=== PATIENT | male | born 1965 | race Caucasian/White ===

== ENCOUNTER → 2018-01-30 | Outpatient (CLI) | payer OTHER ==
[~2018-01-30] MED LIST: REGADENOSON 0.4 MG/5 ML SYRINGE IV ONE
--- NOTE | 2018-01-30 14:15 | EST ---
EXERCISE STRESS DATE OF SERVICE: 01/30/2018 AGE: 52 SEX: M HT: 5'8" WT: 218 PROTOCOL: Lexiscan Cardiolite Stress Test HEART RATE REST: 69 BLOOD PRESSURE REST: 125/95 MAXIMUM HEART RATE ACHIEVED: 115 MAXIMUM BLOOD PRESSURE: 168/74 85% MPHR: 143 100% MPHR: 168 INDICATIONS: Chest pain, shortness of breath. CLINICAL INFORMATION: STRESS DATA: Pretesting physical examination showed heart rate of 69, pressure is 125/95 mmHg. Baseline EKG showed sinus mechanism; 0.4 mg of Lexiscan was given to the patient over 15 seconds per protocol. Max heart rate was 115 beats per minute and maximum pressure was 168/74 mmHg; 0.4 mg of Lexiscan was given. Clinically, the patient did not have any symptoms and the EKG did not show any significant ST or T-wave abnormalities concerning for ischemia. CONCLUSION: 1. Nondiagnostic electrocardiogram stress testing in response to Lexiscan. 2. Please follow up on the Cardiolite portion on separate report from the Radiology Department. MMODL / IJN: [id number] /
--- NOTE | 2018-01-30 16:39 | NM ---
EXAMINATION TYPE: NM stress lexiscan cardiolite DATE OF EXAM: 01/30/2018 COMPARISON: NONE HISTORY: Chest pain shortness of breath TECHNIQUE: After the intravenous administration of 10.29 mCi Tc 99m Sestamibi - Cardiolite resting S PECT images acquired 45 minutes post injection. The patient received 0.4mg Lexiscan, 25.8 mCi Tc 99m Sestamibi - Stress images obtained [address] injection FINDINGS: No fixed or reversible perfusion defects are evident. Gated wall motion appears normal. The ejection fraction of 50% is borderline but normal. On Polar maps there is a defect along the mid to distal anterior wall stress images which is also pre sent on the resting images. Suspicious defect on the SPECT imaging is not evident correlate. This may be artifact. Mild prior infarct is considered less likely. IMPRESSION: 1. No stress-induced ischemic change. 2. Very mild mild infarct along the distal anterior wall is not excluded. Correlate for EKG changes. Artifact is within the differential.
== END | disposition home or self-care (01) ==
LOC: RADNMMAIN 08:39
PROVIDERS: ATTEND Internal Medicine
DX: R06.02 Shortness of breath (principal); R07.9 Chest pain, unspecified
CPT/HCPCS: 93017; 78452; A9500; J2785

== ENCOUNTER → 2022-04-03 | Outpatient (CLI) | payer OTHER ==
[2022-04-03 22:13] LABS: ALT 35 U/L (10-49); AST 22 U/L (14-35); African American GFR (CKD) 91.5 (60.0-200.0); Albumin 4.4 g/dL (3.8-4.9); Albumin/Globulin Ratio 2.06 (1.60-3.17); Alkaline Phosphatase 73 U/L (41-126); Bilirubin, Conjugated <0.20 mg/dL (0.20-0.40); Blood Urea Nitrogen 18.1 mg/dL (9.0-27.0); Carbon Dioxide 21.4 mmol/L (20.0-27.5); Chloride 105 mmol/L (96-109); Globulin 2.1 g/dL (1.6-3.3); Glucose 97 mg/dL (70-110); Potassium 4.1 mmol/L (3.5-5.5); Sodium 142 mmol/L (135-145); Total Protein 6.6 g/dL (6.2-8.2)
[2022-04-03 22:20] LABS: Chol/HDL Ratio 3.88 Ratio; LDL Cholesterol,Calculated 124.9 mg/dL (0.0-131.0)
== END | disposition home or self-care (01) ==
LOC: LABWHC1 13:28
PROVIDERS: ATTEND Internal Medicine
DX: Z00.00 Encounter for general adult medical examination without abnormal findings (principal); Z12.5 Encounter for screening for malignant neoplasm of prostate
CPT/HCPCS: 36415; 80051; 80061; 80076; 82565; 82947; 84153; 84520